=== PATIENT | male | born 1955 | race Caucasian/White ===

== ENCOUNTER 2016-12-13 07:10 | Day surgery (SDC) | payer MEDICARE ==
[~2016-12-13] VITALS: Ht 170.2 cm; Wt 59.5 kg
[2016-12-13 07:36] LABS: BASOPHILS 0.1 % (0.0-2.0); EOSINOPHILS 0.6 % (0-7); HEMATOCRIT 32.9 % (42.0-54.0); HEMOGLOBIN 11.7 g/dL (13.5-17.5); IMMATURE GRANULOCYTES 0.1 % (0-5); LYMPHOCYTES 19.7 % (15-50); MCH 33.5 pg (26.0-34.0); MCHC 35.6 g/dL (31.0-37.0); MCV 94.3 fL (80.0-100.0); MEAN PLATELET VOLUME 8.7 fL (7.4-10.4); MONOCYTES 11.4 % (2-11); NEUTROPHILS 68.1 % (40-80); PLATELET COUNT 156 10x3/uL (130-400); RBC 3.49 10x6/uL (4.20-6.10); RDW 14.7 % (11.5-14.5)
[2016-12-13 07:55] LABS: ALBUMIN 3.3 g/dL (3.4-5.0); ANION GAP 11.1 mmol/L (8-16); BILIRUBIN - TOTAL 0.31 mg/dL (0.2-1.3); CALCIUM 8.4 mg/dL (8.5-10.1); CARBON DIOXIDE 28.5 mmol/L (21.0-32.0); CREATININE - SERUM 1.1 mg/dL (0.6-1.3); POTASSIUM - SERUM 3.6 mmol/L (3.5-5.1)
[2016-12-13 08:07] LABS: APTT 33.6 SECONDS (22.8-39.4); INR 0.98 (0.85-1.17); PROTIME 12.8 SECONDS (11.6-15.0)
[2016-12-13] MEDS ORDERED: ZOVIRAX800 MG PO (08:52)
[2016-12-13] MEDS ORDERED: OMEPRAZOLE40 MG PO (08:53)
[2016-12-13] MEDS ORDERED: EFFEXOR XR150 MG PO (08:53)
[2016-12-13] MEDS ORDERED: LIPITOR20 MG PO (08:53)
[2016-12-13] MEDS ORDERED: TRUVADA 200 MG1 EACH PO (08:53)
[2016-12-13] MEDS ORDERED: PREZISTA600 MG PO (08:54)
[2016-12-13] MEDS ORDERED: NORVIR100 M1 PO (08:54)
[2016-12-13] MEDS ORDERED: MARAVIROC 150 MG PO (08:56)
[2016-12-13] MEDS ORDERED: KENALOG 0.1 % 115 GM TOPICAL (08:56)
[2016-12-13] MEDS ORDERED: TENOFOVIR ALAFENAMIDE (08:56)
[2016-12-13] MEDS ORDERED: EMTRICITABINE (08:56)
[2016-12-13] MEDS ORDERED: ZOFRAN ODT4 MG/UDTAB PO (08:57)
[2016-12-13] MEDS ORDERED: BISOPROLOL-HCT1 EAC1 PO (08:57)
[2016-12-13] MEDS ORDERED: MS CONTIN100 MG PO (08:57)
[2016-12-13] MEDS ORDERED: VASOTEC10 MG PO (08:58)
[2016-12-13] MEDS ORDERED: CARDURA4 MG PO (08:59)
[2016-12-13 09:19] VITALS: Ht 170.2 cm; Wt 59.5 kg
--- NOTE | 2016-12-13 10:43 | NUR ---
1040 DR. SULEMA SWENSON.
--- NOTE | 2016-12-14 10:15 | OP ---
PATIENT NAME: GERMAINE LACY MEDICAL RECORD: [id number] :51 LOCATION:[facility] ADMISSION DATE: SURGEON: JACQUIE LEONE DO DATE OF OPERATION: 12/13/2016 PROCEDURE: EGD with biopsies. SCOPE: Olympus video gastroscope. MEDICATIONS: Propofol per anesthesia. INDICATIONS FOR PROCEDURE: Generalized nausea and vomiting, unspecified. FINDINGS: Informed consent was given. The patient was made comfortable with the above medications. After reaching an adequate level of sedation by slow IV push, the patient was placed on his left side. The endoscope was then advanced under direct visualization through the mouth to the second portion of the duodenum. The upper, middle and distal thirds of the esophagus all appeared normal. At the GE junction, there was evidence of very mild reflux induced esophagitis grade A. The scope was advanced through the GE junction and retroflexed to view the cardia. There was a diminutive sliding hiatal hernia present. On retroflexion, on view of the distal cardia into the stomach body, there was evidence of congestion and edema consistent with gastritis. Biopsies were taken of this site with cold forceps and sent for histology. In the distal stomach, there was some evidence of gastritis as well with enlarged fold extended down into the pylorus. Biopsies were taken around this area as well and submitted for histology and to rule out H. pylori. Scope was advanced down into the duodenum where there were some appearances of flat ____. Biopsies were taken in the bulb and second portion. Of note, on this examination also there was a large amount of retained food within the stomach consistent with gastroparesis. Scope was withdrawn from the patient. The patient tolerated the procedure well and there were no complications. ESTIMATED BLOOD LOSS: Less than 5 cc. IMPRESSION: 1. Reflux esophagitis grade A at the gastroesophageal junction. 2. Diminutive sliding hiatal hernia. 3. Gastritis involving the distal cardia and body of the stomach as well as the prepyloric region. Biopsies taken. 4. Duodenitis with villous blunting involving the bulb and second portion of the duodenum. Biopsies taken. PLAN AND RECOMMENDATIONS: 1. Discharge home when recovery parameters are met. 2. Continue current diet. 3. Follow up biopsy specimens. 4. Continue current medications, including omeprazole 40 mg daily. 5. Continue ondansetron as needed for the nausea. 6. We will order a gastric emptying study to evaluate for possible gastroparesis and treat accordingly. TRANSINT:[id number] Voice Confirmation ID: [id number] DOCUMENT ID: [id number] OPERATIVE REPORT [id number] GERMAINE LACY NATHAN A DO at 1015 CC: [id number] DICTATION DATE: 12/13/16 0956 [employer] REPRESENTATIVE: 12/13/16 1125 [facility] 12/13/[address] [id number]
== END 2016-12-13 11:30 | disposition home or self-care (01) ==
LOC: D.OPS 07:10
PROVIDERS: Anesthesiology
DX: K21.0 Gastro-esophageal reflux disease with esophagitis (principal); K44.9 Diaphragmatic hernia without obstruction or gangrene; K29.70 Gastritis, unspecified, without bleeding; K29.80 Duodenitis without bleeding

== ENCOUNTER → 2017-03-08 15:52 | Outpatient (CLI) | payer MEDICARE ==
[2016-12-13 09:19] VITALS: BMI 20.5
[~2017-03-08 15:52] MED LIST: BISOPROLOL-HCT1 EAC1 PO; CARDURA4 MG PO; EFFEXOR XR150 MG PO; EMTRICITABINE; KENALOG 0.1 % 115 GM TOPICAL; LIPITOR20 MG PO; MARAVIROC 150 MG PO; MS CONTIN100 MG PO; NORVIR100 M1 PO; OMEPRAZOLE40 MG PO; PREZISTA600 MG PO; TENOFOVIR ALAFENAMIDE; TRUVADA 200 MG1 EACH PO; VASOTEC10 MG PO; ZOFRAN ODT4 MG/UDTAB PO; ZOVIRAX800 MG PO
== END | disposition home or self-care (01) ==
LOC: D.LABREF 15:52
PROVIDERS: Student in an Organized Health Care Education/Training Program
DX: B20 Human immunodeficiency virus [HIV] disease (principal)